=== PATIENT | male | born 1955 | race Caucasian/White ===

== ENCOUNTER → 2017-02-11 | Outpatient (CLI) | payer BC ==
[~2017-02-11] MED LIST: GADAVIST IV PRN
--- NOTE | 2017-02-11 08:04 | DIAGNOSTIC IMAGING REPORT ---
MRI NECK HISTORY: Left-sided neck pain and numbness. TECHNIQUE: Multiplanar multisequence MRI of the neck was performed both before and after the intravenous administration of contrast. COMPARISON STUDY: None. FINDINGS: Visualized brain parenchyma is unremarkable. Small retention cysts within the floor of the right maxillary sinus. The mastoid air cells are clear. Skin marker overlying the left hemimandible. No soft tissue abnormality along the left side of the jaw. Submandibular and parotid glands enhance normally. The major mucosal airway surfaces are intact. No significant cervical lymphadenopathy. Normal marrow signal intensity seen throughout the visualized osseous structures. No abnormal enhancement. Motion artifact within the lower neck. Thyroid appears to be grossly unremarkable. Prevertebral soft tissues and the epiglottis are normal in thickness. The major cervical vessels are normal in caliber. IMPRESSION: No significant abnormality identified within the neck. Electronically signed by: Kory Burton M.D. 02/11/2017 8:03 AM Dictated Date/Time: 02/11/2017 7:57 AM
== END | disposition home or self-care (01) ==
LOC: C.MRI 05:57
PROVIDERS: ATTEND Internal Medicine Hematology & Oncology
DX: M50.11 Cervical disc disorder with radiculopathy, high cervical region (principal)

== ENCOUNTER 2020-09-30 10:54 | Observation (INO) ==
--- NOTE | 2020-09-04 14:09 | PAT Medication Instructions ---
Medication Instructions Date of Service September 04, 2020 Home Medications aspirin [Aspir-81] 81 mg PO QPM glucosamine-chondroitin [Osteo Bi-Flex] 1 tab PO BID hydrochlorothiazide 50 mg PO QAM ibuprofen [Advil] 400 - 600 mg PO Q6H PRN omega 7-qep-utr-fish oil [[place] 3 Fish Oil] 1 cap PO QAM potassium chloride [Klor-Con] 20 meq PO BID simvastatin 40 mg PO PM ASK your surgeon for instructions ibuprofen [Advil] 400 - 600 mg PO Q6H PRN STOP taking 2 weeks before surgery (or as soon as possible if surgery is within 2 weeks) glucosamine-chondroitin [Osteo Bi-Flex] 1 tab PO BID omega 4-jkr-ypb-fish oil [[place] 3 Fish Oil] 1 cap PO QAM DO NOT take the morning of surgery hydrochlorothiazide 50 mg PO QAM potassium chloride [Klor-Con] 20 meq PO BID Take evening before surgery aspirin [Aspir-81] 81 mg PO QPM (continue as normal unless told otherwise by surgeon) potassium chloride [Klor-Con] 20 meq PO BID simvastatin 40 mg PO PM Other Notes If you have any questions please call us at [phone] or [phone] or [phone] or [phone]
--- NOTE | 2020-09-08 16:17 | Anesthesiology Consultation ---
Date of Service September 08, 2020 Assessment & Plan (1) Encounter for pre-operative examination: COVID Status: As of 09/08 assessment, patient denies travel to endemic area, known exposure/sick contacts, or symptoms of COVID19. Patient advised to adhere to social distancing guidelines, wear a mask in public and avoid large crowds or unnecessary travel in the 2 weeks leading up to surgery. Preoperative COVID19 testing to be completed prior to surgery per surgeon's arrangements (09/26 per pt). Patient encouraged to be extra cautious/conscientious with COVID precautions between COVID testing and surgery. Pt is fully vaccinated with Moderna vaccine. Chart Review Chart Review: Acceptable Risk for Surgery (pending pcp clearance) and Patient seen in Pre Admission Testing Teaching & Discussion Instructed NPO after midnight before surgery, except medications with 15 cc of water. Medication instructions provided according to the PAT guidelines. History Surgery Operation Date: 09/30/20 10:20 Proposed Procedures p Right Total Knee Arthroplasty(Right) - Rodolfo Doyle Nichole MD Height/Weight Height: 5 ft 8 in Weight: 105.3 kg Allergies Allergy/AdvReac Type Severity Reaction Status Date / Time scallops Allergy Unknown NAUSEA Verified 09/02/20 08:49 VOMITING Medications Home Medications Medication Instructions Recorded Confirmed Last Taken aspirin [Aspir-81] 81 mg PO QPM 09/02/20 09/02/20 Unknown glucosamine-chondroitin [Osteo 1 tab PO BID 09/02/20 09/02/20 Unknown Bi-Flex] hydrochlorothiazide 50 mg PO QAM 09/02/20 09/02/20 Unknown ibuprofen [Advil] 400 - 600 mg PO Q6H PRN 09/02/20 09/02/20 Unknown omega 3-iej-fsh-fish oil [[place] 3 1 cap PO QAM 09/02/20 09/02/20 Unknown Fish Oil] potassium chloride [Klor-Con] 20 meq PO BID 09/02/20 09/02/20 Unknown simvastatin 40 mg PO PM 09/02/20 09/02/20 Unknown Past Medical History Medical History Cancer BASAL CELL REMOVED FROM FACE Hyperlipidemia Hypertension Obesity Osteoarthritis Exercise / Class Metabolic Activity II 4-5 Yardwork/Stairs/Walk up hill Past Family History Family History Other No known health problems Past Surgical History Surgical History History of colonoscopy History of nasal septoplasty Past Anesthesia History No Hx of Anesthesia Complications and No Family Hx of Anesthesia Complications History of PONV No Hx of PONV and No Hx of Motion Sickness Social History Smoking Status: Former smoker Do You Dip or Chew Tobacco: No Smoking End Date: QUIT 30 YRS AGO Hx Alcohol Use: Yes Alcohol type: beer, wine and hard liquor alcohol intake frequency: a few times a week Hx Substance Use: No Review of Systems Pt denies any recent chest pain, shortness of breath, palpitations, cough, fever, URI, or uncontrolled acid reflux. +joint pain Physical Exam Vital Signs BP: 141/99 P: 80bpm SPO2: 97% RA T: 97.8 F R: 16 ENMT Mouth: + dental restorations (one crown lower molar) and + chipped teeth (one lower R cuspid chipped); no loose teeth Thyromental Distance: > or= 3.5 Finger Breadths Mallampati Class: II Neck + thick neck; neck extension not limited Respiratory normal respiratory effort, lungs clear to auscultation Cardiovascular RRR, no murmur, no edema Testing Laboratory Results 09/08/20 16:33 09/08/20 16:33 PT 10.0 Seconds (9.0-12.0) 09/08/20 16:33 INR 1.0 (0.9-1.1) 09/08/20 16:33 APTT 23.7 Seconds (21.0-31.0) 09/08/20 16:33 Blood Type O Positive 09/08/20 16:33 Antibody Screen NEGATIVE 09/08/20 16:33 Electrocardiogram Date: 09/08/20 Findings: + NSR @ (64bpm)
[2020-09-08 17:04] LABS: Basophils # (auto) 0.02 K/uL (0-0.2); Basophils % (auto) 0.4 %; Eosinophils % (auto) 3.8 %; Hematocrit (blood only) 47.2 % (42-52); Hemoglobin 16.3 g/dL (14.0-18.0); Immature Granulocytes # (auto) 0.01 K/uL (0.00-0.02); Immature Granulocytes % (auto) 0.2 %; Lymphocytes # (auto) 1.65 K/uL (1.2-3.4); Mean Corpuscular Hemoglobin 31.3 pg (25-34); Mean Corpuscular Hgb Conc 34.5 g/dL (32-36); Mean Corpuscular Volume 90.8 fL (80-100); Mean Platelet Volume 10.8 fL (7.4-10.4); Monocytes # (auto) 0.48 K/uL (0.11-0.59); Neutrophils # (auto) 2.96 K/uL (1.4-6.5); Neutrophils % (auto) 55.6 %; Platelet Count 172 K/uL (130-400); RDW Coefficient of Variation 13.3 % (11.5-14.5); RDW Standard Deviation 43.7 fL (36.4-46.3); White Blood Count 5.32 K/uL (4.8-10.8)
[2020-09-08 17:18] LABS: Partial Thromboplastin Ratio 0.9; Partial Thromboplastin Time 23.7 Seconds (21.0-31.0)
[2020-09-08 18:10] LABS: Albumin Level 4.1 gm/dl (3.4-5.0); BUN Creatinine Ratio 20.5 (10-20); Bilirubin Direct 0.2 mg/dl (0-0.2); Bilirubin,Total 1.1 mg/dl (0.2-1); Calcium 9.4 mg/dl (8.5-10.1); Creatinine Clr Calc Pharmacy 80.9 ml/min; Est GFR (African American) 82.4 ml/min; Est GFR (Non-African American) 71.1 ml/min; Potassium 3.7 mmol/L (3.5-5.1); Total Protein 7.7 gm/dl (6.4-8.2)
--- NOTE | 2020-09-09 13:12 | Electrocardiogram Report ---
Test Reason : Blood Pressure : / mmHG Vent. Rate : 064 BPM Atrial Rate : 064 BPM P-R Int : 176 ms QRS Dur : 092 ms QT Int : 400 ms P-R-T Axes : 058 045 050 degrees QTc Int : 412 ms Normal sinus rhythm Normal ECG No previous ECGs available Confirmed by Luan Hamm ([id number]) on 09/09/2020 1:11:39 PM Referred By: Rodolfo Nichole Confirmed By:Luan Hamm
[~2020-09-30 10:54] MED LIST changes: +BUPIVACAINE 0.25% 30 ML VIAL ONE; +BUPIVACAINE 0.5 % 5 MG/1 ML PF 10ML VIAL ONE; +CeleBREX 200 MG CAP PO SCH; +EPINEPHrine INJ 1 MG/ML AMP ONE; -GADAVIST IV PRN; +LR 500ML BOLUS, THEN 15ML/HR IV SCH; +LR 60ML/HR IV SCH; +ROPIVACAINE 0.5% HCL/PF 150 MG, BUPIVACAINE 0.75% MPF 20 ML, EPINEPHrine 0.15 MG, Ketor... INFIL SCH; +Scopolamine 1 MG TDSY TD SCH; +TRANEXAMIC ACID 1,000 MG **IV Intra-op IV SCH; +TRANEXAMIC ACID 1,000 MG **IV Pre-op IV SCH; +ceFAZolin 2000MG 2,000 MG/15 ML SYR IV SCH
[2020-09-30] MEDS ORDERED: LIDOCAINE 2% 2 ML VIAL/AMP(20MG/ML) INFIL ONE (12:52)
[2020-09-30] MEDS ORDERED: MIDAZOLAM HCL 1 MG/ML 2ML VIAL ONE ×2 (12:52→15:12)
[2020-09-30] MEDS ORDERED: ONDANSETRON INJ 2 MG/ML 2 ML VIAL ONE (12:53)
[2020-09-30] MEDS ORDERED: PROPOFOL IV EMULSION 10 MG/ML 20 ML VIAL IV ONE ×5 (12:53→17:24)
[2020-09-30] MEDS ORDERED: fentaNYL citrate 100 MCG/2 ML VIAL IV PRN (13:02)
[2020-09-30] MEDS ORDERED: ePHEDrine sulfate 50 MG/ML AMP IV PRN (13:02)
[2020-09-30] MEDS ORDERED: HYDROmorphone INJ 2 MG/ML SYR/VIAL IV PRN (13:02)
[2020-09-30] MEDS ORDERED: ONDANSETRON INJ 2 MG/ML 2 ML VIAL IV PRN ×2 (13:02→17:38)
[2020-09-30] MEDS ORDERED: ATROPINE SULFATE 0.1 MG/ML 10ML SYR IV PRN (13:02)
--- NOTE | 2020-09-30 13:36 | History & Physical Bridge Note ---
Date of Service September 30, 2020 History & Physical Bridge Note I have examined the patient, reviewed the History & Physical and in the interval since the performance of the History & Physical I have noted the following changes of clinical significance: no changes noted Patient is aware of the risks, is asymptomatic, and tested negative for COVID- 19.
[2020-09-30] MEDS ORDERED: ORTHO JOINT ANESTHETIC ONE (13:47)
[2020-09-30] MEDS ORDERED: ePHEDrine sulfate 50 MG/ML AMP ONE (14:43)
[2020-09-30] MEDS ORDERED: SODIUM CHLORIDE 0.9% INJ 10 ML VIAL ONE (14:44)
[2020-09-30] MEDS ORDERED: PHENYLEPHRINE 100MCG/ML 5ML SYR ONE (14:47)
[2020-09-30] MEDS ORDERED: KETAMINE 50 MG/5 ML SYRINGE ONE (16:16)
--- NOTE | 2020-09-30 17:22 | Post Operative Brief Note ---
Immediate Post Op Note v1 Date of Surgery September 30, 2020 Pre & Post Diagnosis Operation Date: 09/30/20 13:10 Pre-Op Diagnosis: Right Knee Osteoarthritis Post-Op Diagnosis: Right Knee Osteoarthritis I identified the patient and participated in the time-out.: Yes Procedure Operation Date: 09/30/20 13:10 Actual Procedures p Right Total Knee Arthroplasty(Right) - Rodolfo Nichole MD Surgeon Rodolfo Nichole MD Proof Tester Cathy Faye PA-C (No fellow avail) Estimated Blood Loss 120 Findings See Below Fluids 1700 cc Specimens Right knee contents Anesthesia Type MAC Spinal Regional Complications none
--- NOTE | 2020-09-30 17:23 | Operative Report ---
Post Operative Report Pre & Post Diagnosis Operation Date: 09/30/20 13:10 Pre-Op Diagnosis: Right Knee Osteoarthritis Post-Op Diagnosis: Right Knee Osteoarthritis I identified the patient and participated in the time-out.: Yes Procedure Operation Date: 09/30/20 13:10 Actual Procedures p Right Total Knee Arthroplasty(Right) - Rodolfo Nichole MD Surgeon Rodolfo Nichole MD Band Tacker Cathy Faye PA-C (No fellow avail) Estimated Blood Loss 120 Findings See Below Examined Under Anesthesia: ROM -- 10 to 125 degrees of flexion Ligamentous examination -- revealed stable Andreea, posterior drawer, varus stress at 10 and 30 degrees. Pseudo laxity of 1 mm with valgus stress at 10 and 30 degrees. [place] Type IV changes of Medial compartment, bone on bone; Type III changes Lateral and Patellofemoral compartments. Marginal osteophytes all 3 compartments. Fluids 1700 cc Specimens Right knee contents Anesthesia Type MAC Spinal Regional Complications none Indications This is a 65-year-old male who has clinical and radiographic findings consistent with osteoarthritis of the a right knee. I recommended that a right total knee replacement be performed. The patient understands the risks of surgery, which include but not limited to: bleeding, infection, re-operation, damage to nerves and arteries, continued knee pain, knee stiffness, DVT, and . The patient understands all of these instructions and explanations, all of his questions have been satisfactorily addressed and the patient has elected to proceed. Informed consent was signed. Description of Procedure IMPLANTS: 1. Femur: Triathlon #5 Right PS. 2. Tibia: Triathlon #6 [place]. 3. Insert: Triathlon #6 x 11 mm PS X3 poly. 4. Patella: Triathlon A35 x 10 mm X3 poly. 5. Simplex cement. Cathy Faye PA-C is assisting with positioning, retracting, and closure due to fellow not available. PROCEDURE: The patient was taken to the Operating Room and placed in the supine position after spinal and adductor canal nerve block was administered. My initials and a multidisciplinary time-out were used to identify the right leg as the correct operative limb. A tourniquet was placed high in the thigh. Prior to the incision, 2 grams of intravenous Ancef were given. The [right] leg was then prepped and draped in a standard sterile fashion. An Esmarch was used to exsanguinate the leg and the tourniquet was inflated to 250 mmHg. The planned mid-line 20 cm incision was created exposing the extensor mechanism. The medial parapatellar arthrotomy was made and the patella was everted. The patella was addressed first. It was prepared by reaming from [27] mm down to [15] mm. An [A38] button was found to fit best. The peg holes were made in the standard fashion. The femur was addressed next and the guide madie was placed intramedullary. The initial cutting block was placed with [5] degrees of valgus and removing [10] mm for the distal cut. The cut was made and the 4-in-1 cutting block for a size [6] femur was placed. These cuts and the cuts to place the box were made in the standard fashion. Our attention was then drawn to the tibia cut with the external cutting guide, taking [4] mm from the medial low side. There was sufficient extension and flexion gap to fit a [9] mm spacer. A #[6] Tibial baseplate fit well. A trial with a [9] mm spacer showed excellent stability in both flexion and extension, with good ligament balance, and thumbs free patellar tracking. Range of motion of [0-120] degrees. The tibial baseplate was prepped for the keel and stem. [A stem was used due to some areas of soft bone, to avoid subsidence.] All the trial components were tested again, with good stability and thumbs free tracking of the patella. All components were removed. The tourniquet was deflated. Hemostasis was obtained. 90 ml of total knee cocktail were injected into the soft tissues and periosteum. A bone plug was placed in the femur and covered with bone wax. After a 15 minute break, the limb was exsanguinated again and the tourniquet was re-inflated. All surfaces were copiously irrigated prior to placement of the components. The femoral component followed by Tibial baseplate were cemented in place and [a X mm trial placed][ and the 9 mm X3 poly was placed]. Next, the patellar button was placed using the same Simplex cement. [Again with the [9] mm trial poly was placed and the range of motion and stability were unchanged. Once the cement had cured, the [9] mm X3 poly was placed. ] The extensor mechanism was closed with 1-0 and 0 Vicryl with the knee bent approximately 60 degrees in a standard fashion. The peritenon and deep fascia was closed with 2-0 Vicryl. The subcutaneous layer was closed with 3-0 Vicryl. The skin was closed with Zipline and shield. The limb was cleaned and dried. 4x4 dressing was placed over top followed by ABDs, sterile Webril, and a foot to thigh Miguelito bandage. The patient was then transferred to the Recovery Room in stable condition. The sponge and needle counts were correct. POST-OP INSTRUCTIONS: The patient will be WBAT. The patient will be admitted to the hospital. The patient will use the knee immobilizer when ambulating and standing until good quad control is achieved. Labs will be obtained during the stay. DVT prophylaxis will included aspirin for 6 weeks, TEDs, and mechanical foot pumps. The dressing will be changed prior to their discharge or postop day #2 and covered with a Silverlon dressing, whichever comes first. I attest to the content of the Intraoperative Record and any orders documented therein. Any exceptions are noted below.
[2020-09-30] MEDS ORDERED: bisacodyL 10 MG SUPP PR PRN (17:38)
[2020-09-30] MEDS ORDERED: oxyCODONE HCL IR 5 MG TAB (IMMEDIATE RELEASE) PO PRN (17:38)
[2020-09-30] MEDS ORDERED: diphenhydrAMINE 50 MG/ML VIAL IV PRN (17:38)
[2020-09-30] MEDS ORDERED: HYDROmorphone INJ 1 MG/ML SYRINGE IV PRN (17:38)
[2020-09-30] MEDS ORDERED: diphenhydrAMINE Capsule 25 MG CAP PO PRN (17:38)
[2020-09-30] MEDS ORDERED: MAGNESIUM HYDROXIDE SUSP 30 ML UDC PO PRN (17:38)
[2020-09-30] MEDS ORDERED: NALOXONE HCL 0.4 MG/1 ML VIAL/CARP IV PRN (17:38)
[2020-09-30] MEDS ORDERED: ALUMINUM/MAGNESIUM SUSP 30 ML UDC PO PRN (17:38)
[2020-09-30] MEDS ORDERED: METOCLOPRAMIDE HCL INJ 5 MG/ML 2 ML VIAL IV PRN (17:38)
--- NOTE | 2020-09-30 17:40 | Operative Report ---
Post Operative Report Pre & Post Diagnosis Operation Date: 09/30/20 13:10 Pre-Op Diagnosis: Right Knee Osteoarthritis Post-Op Diagnosis: Right Knee Osteoarthritis I identified the patient and participated in the time-out.: Yes Procedure Operation Date: 09/30/20 13:10 Actual Procedures p Right Total Knee Arthroplasty(Right) - Rodolfo Nichole MD Surgeon Rodolfo Nichole MD Grab Operator Cathy Faye PA-C (No fellow avail) Estimated Blood Loss 120 Findings Consistent with Post-Op Diagnosis Specimens bone Complications none Description of Procedure See Dr Nichole note. I was interior design assistant during entire case to include prepping, draping, limb and instrument handling, wound closure, dressings. I attest to the content of the Intraoperative Record and any orders documented therein. Any exceptions are noted below.
--- NOTE | 2020-09-30 18:03 | XRay Report ---
XR knee RT 1 or 2V routine CLINICAL HISTORY: Surgical Post Op COMPARISON: Right knee radiographs August 04, 2020. FINDINGS: Alignment of the total right knee arthroplasty is anatomic. There is no periprosthetic fra cture or unexpected radiopaque foreign body. IMPRESSION: Expected findings following total right knee arthroplasty ACT 112: Negative or not required by law. Electronically signed by: Robert Proctor M.D. 09/30/2020 6:02 PM
--- NOTE | 2020-09-30 18:12 | Anesthesiology Progress Note ---
Date of Service September 30, 2020 Anesthesia Post Procedure Vital Signs Vital Signs: Temp Pulse Pulse Resp BP BP Pulse Ox 09/30/20 18:10 36.1 C L 93 H 18 123/75 95 09/30/20 18:00 92 H 17 111/78 96 09/30/20 17:50 97 H 16 143/98 H 96 09/30/20 17:40 98 H 20 116/83 99 09/30/20 17:34 36.2 C L 102 H 15 120/82 94 09/30/20 13:30 37.0 C 70 18 169/94 H 95 09/30/20 11:34 36.7 C 72 20 151/98 H 95 Pain Intensity Right Knee: Pain Intensity: 4 Transfer of Care Handoff Completed per policy Notes Mental Status: alert / awake / arousable and participated in evaluation Nausea / Vomiting: adequately controlled Pain: adequately controlled Airway Patency, RR, SpO2: stable & adequate BP & HR: stable & adequate Hydration State: stable & adequate Neuraxial Anesthesia: was administered and sensory block is resolving Anesthetic Complications: no major complications apparent and Pt Satisfied with anesthetic care
[2020-09-30] MEDS: Scopolamine CHECK PATCH PLACEMENT SCH (19:04)
[2020-09-30] MEDS: SODIUM CHLORIDE 0.9% 1000ML 1,000 ML IV SCH (19:10)
[2020-09-30] MEDS ORDERED: SIMVASTATIN 40 MG TAB PO SCH (21:00)
[2020-09-30] MEDS ORDERED: SENNA 8.6 MG TAB PO SCH (21:00)
[2020-09-30] MEDS: ceFAZolin 2000MG 2,000 MG/15 ML SYR IV SCH (22:07)
[2020-09-30] MEDS: ACETAMINOPHEN 500 MG TAB PO SCH (22:07)
[2020-09-30] MEDS: POTASSIUM CHLORIDE CRTAB 20 MEQ TABCR PO SCH (22:08)
[2020-09-30] MEDS: ASPIRIN 81 MG ECTAB PO SCH (22:09)
[2020-09-30] MEDS: DOCUSATE SODIUM 100 MG CAP PO SCH (22:09)
[2020-10-01] MEDS: Scopolamine CHECK PATCH PLACEMENT SCH ×2 (00:49→07:54)
[2020-10-01] MEDS: ACETAMINOPHEN 500 MG TAB PO SCH ×2 (05:08→10:53)
[2020-10-01] MEDS: SODIUM CHLORIDE 0.9% 1000ML 1,000 ML IV SCH (05:09)
[2020-10-01] MEDS: ceFAZolin 2000MG 2,000 MG/15 ML SYR IV SCH (05:12)
[2020-10-01 07:04] LABS: Hematocrit (blood only) 36.7 % (42-52); Hemoglobin 12.4 g/dL (14.0-18.0); Mean Corpuscular Hemoglobin 31.1 pg (25-34); Mean Corpuscular Hgb Conc 33.8 g/dL (32-36); Mean Platelet Volume 10.5 fL (7.4-10.4); Platelet Count 128 K/uL (130-400); RDW Coefficient of Variation 13.1 % (11.5-14.5); RDW Standard Deviation 44.3 fL (36.4-46.3); Red Blood Count 3.99 M/uL (4.7-6.1); White Blood Count 7.09 K/uL (4.8-10.8)
[2020-10-01 07:32] LABS: BUN Creatinine Ratio 15.8 (10-20); Calcium 8.1 mg/dl (8.5-10.1); Creatinine Clr Calc Pharmacy 67.9 ml/min; Est GFR (African American) 68.7 ml/min; Est GFR (Non-African American) 59.3 ml/min
[2020-10-01] MEDS: ASPIRIN 81 MG ECTAB PO SCH (07:53)
[2020-10-01] MEDS: POTASSIUM CHLORIDE CRTAB 20 MEQ TABCR PO SCH (07:54)
[2020-10-01] MEDS: DOCUSATE SODIUM 100 MG CAP PO SCH (07:54)
[2020-10-01] MEDS ORDERED: ASCORBIC ACID 500 MG TAB PO SCH (08:00)
[2020-10-01] MEDS ORDERED: FERROUS GLUCONATE 324 MG TAB PO SCH (08:00)
[2020-10-01] MEDS ORDERED: MULTIVITAMIN TAB PO SCH (09:00)
[2020-10-01] MEDS ORDERED: hydroCHLOROthiazide 25 MG TAB PO SCH (09:00)
--- NOTE | 2020-10-01 09:34 | Orthopedic Progress Note ---
Date of Service October 01, 2020 Assessment & Plan (1) Osteoarthritis of right knee: POD #1 s/p right TKA, doing as well as expected. Resume diet. WBAT with walker; immobilizer with ambulation until demonstrates good quad control no more than first 48 hours. May trial ambulation without immobilizer. OOB to chair. Continue pain control. Change dressing to Silverlon POD #2 or prior to discharge, whichever comes first. DVT prophylaxis: TEDs 3 weeks, foot pumps while in hospital, ASA 81 mg BID for 6 weeks. PT/OT. D/C planning. Present on Admission?: Yes Admission and Anticipated Discharge Date Admission Date: September 30, 2020 Subjective Doing alright. Starting to pain a bit. Physical Exam Physical Exam: RLE: Dressing is Clean, dry, intact. Neurovascularly intact.Calf is soft and non-tender. Able to preform straight leg raise, 10 degrees extensor lag. ROM 0-80 degrees. Results & Data ([facility]) Vital Signs (Past 12 Hours) Vital Signs Temp Pulse Resp BP Pulse Ox 10/01/20 07:51 36.8 C 84 16 123/76 96 10/01/20 03:17 36.6 C 83 19 125/75 99 09/30/20 23:31 36.7 C 70 17 121/72 94 09/30/20 22:03 36.4 C L 80 15 128/80 95 Laboratory Results 10/01/20 10/01/20 09/30/20 Range/Units 06:45 06:45 11:22 WBC 7.09 (4.8-10.8) K/uL RBC 3.99 L (4.7-6.1) M/uL Hgb 12.4 L (14.0-18.0) g/dL Hct 36.7 L (42-52) % MCV 92.0 (80-100) fL MCH 31.1 (25-34) pg MCHC 33.8 (32-36) g/dL RDW Std Deviation 44.3 (36.4-46.3) fL RDW Coeff of Sindy 13.1 (11.5-14.5) % Plt Count 128 L (130-400) K/uL MPV 10.5 H (7.4-10.4) fL Sodium 139 (136-145) mmol/L Potassium 4.0 (3.5-5.1) mmol/L Chloride 104 (98-107) mmol/L Carbon Dioxide 25 (21-32) mmol/L Anion Gap 10.0 (3-11) BUN 20 H (7-18) mg/dl Creatinine 1.27 (0.6-1.4) mg/dl Est Cr Clr Drug Dosing 67.9 ml/min Est GFR ( Amer) 68.7 ml/min Est GFR (Non-Af Amer) 59.3 ml/min BUN/Creatinine Ratio 15.8 (10-20) Glucose 132 H (70-99) mg/dl Calcium 8.1 L (8.5-10.1) mg/dl COVID-19 Eval Order SARS-CoV-2, RNA, NAAT NEGATIVE (NEGATIVE) 09/30/20 Range/Units 11:22 WBC (4.8-10.8) K/uL RBC (4.7-6.1) M/uL Hgb (14.0-18.0) g/dL Hct (42-52) % MCV (80-100) fL MCH (25-34) pg MCHC (32-36) g/dL RDW Std Deviation (36.4-46.3) fL RDW Coeff of Sindy (11.5-14.5) % Plt Count (130-400) K/uL MPV (7.4-10.4) fL Sodium (136-145) mmol/L Potassium (3.5-5.1) mmol/L Chloride (98-107) mmol/L Carbon Dioxide (21-32) mmol/L Anion Gap (3-11) BUN (7-18) mg/dl Creatinine (0.6-1.4) mg/dl Est Cr Clr Drug Dosing ml/min Est GFR ( Amer) ml/min Est GFR (Non-Af Amer) ml/min BUN/Creatinine Ratio (10-20) Glucose (70-99) mg/dl Calcium (8.5-10.1) mg/dl COVID-19 Eval Order Covid19 [facility] SARS-CoV-2, RNA, NAAT (NEGATIVE) Diagnostic Findings I reviewed the AP & Lateral right knee showed evidence of cemented right TKA.
--- NOTE | 2020-10-01 13:11 | Orthopedic Progress Note ---
Date of Service October 01, 2020 Assessment & Plan (1) Osteoarthritis of right knee: POD #1 s/p right TKA, doing as well as expected. Continue diet. WBAT with walker; immobilizer with ambulation until demonstrates good quad control no more than first 48 hours. May trial ambulation without immobilizer. OOB to chair. Continue pain control. Dressing changed to silverlon waterproof dressing to remain on until f/u in office. DVT prophylaxis: TEDs 3 weeks, foot pumps while in hospital, ASA 81 mg BID for 6 weeks. PT/OT. D/C planning---plan to go home today. DC order placed. Admission and Anticipated Discharge Date Admission Date: September 30, 2020 Subjective Patient seen this PM. Ready to go home. Had lunch and physical therapy. No issues. Physical Exam Physical Exam: Post-op dressings removed to right knee. Zip line intact. Some dry blood on 4x4s. Otherwise no active drainage. NV intact B LE. B calves are soft. Results & Data ([facility]) Vital Signs (Past 12 Hours) Vital Signs Temp Pulse Resp BP Pulse Ox 10/01/20 12:25 36.9 C 76 17 122/75 98 10/01/20 07:51 36.8 C 84 16 123/76 96 10/01/20 03:17 36.6 C 83 19 125/75 99 Laboratory Results 10/01/20 10/01/20 Range/Units 06:45 06:45 WBC 7.09 (4.8-10.8) K/uL RBC 3.99 L (4.7-6.1) M/uL Hgb 12.4 L (14.0-18.0) g/dL Hct 36.7 L (42-52) % MCV 92.0 (80-100) fL MCH 31.1 (25-34) pg MCHC 33.8 (32-36) g/dL RDW Std Deviation 44.3 (36.4-46.3) fL RDW Coeff of Sindy 13.1 (11.5-14.5) % Plt Count 128 L (130-400) K/uL MPV 10.5 H (7.4-10.4) fL Sodium 139 (136-145) mmol/L Potassium 4.0 (3.5-5.1) mmol/L Chloride 104 (98-107) mmol/L Carbon Dioxide 25 (21-32) mmol/L Anion Gap 10.0 (3-11) BUN 20 H (7-18) mg/dl Creatinine 1.27 (0.6-1.4) mg/dl Est Cr Clr Drug Dosing 67.9 ml/min Est GFR ( Amer) 68.7 ml/min Est GFR (Non-Af Amer) 59.3 ml/min BUN/Creatinine Ratio 15.8 (10-20) Glucose 132 H (70-99) mg/dl Calcium 8.1 L (8.5-10.1) mg/dl
--- NOTE | 2020-10-01 15:04 | Discharge Summary ---
Date of Service October 01, 2020 Principal Diagnosis Right knee osteoarthritis Discharge Data Allergies Allergy/AdvReac Type Severity Reaction Status Date / Time scallops Allergy Unknown NAUSEA Verified 09/30/20 11:37 VOMITING Procedures Performed Operation Date: 09/30/20 13:10 Actual Procedures p Right Total Knee Arthroplasty(Right) - Rodolfo Doyle Nichole MD Ordered Studies 09/30/20 05:00 US - OR guided needle placemen Routine Hospital Course (1) Osteoarthritis of right knee: Patient underwent right total knee arthroplasty performed by Dr Nichole on 09-30-20. Surgery was without complication. He was admitted to the floor under observation. 24 hours of postop antibiotics. His pain was controlled with p.o. narcotics. He received physical therapy on postop day 1. He was able to ambulate with a walker. He is using a knee immobilizer only with ambulation. He tolerated a regular diet. Vital signs and postop day 1 AM labs within normal limits. DVT prophylaxis while in the hospital consisted of foot pumps, MELANIE hose, and 81mg ASA BID. He was seen by case management and home health physical therapy ordered. He has had no issues with his knee wound. Post-op dressings were changed to silverlon waterproof dressing on POD 1. Patient was deemed stable to be discharged to home on POD 1 in pm. He will start home health therapy. WBAT with walker. Knee immobilizer for 48hrs post-op or until good quad control. He will use his ez wrap ice gel pack, tylenol, and oxycodone for pain. He will keep waterproof dressing on until follow-up in 2wks. DVT prophylaxis will consist of ASA 81mg BID x 6wks, knee high TEDs for 2-3wks. Discharge medications sent to his pharmacy consisting of ASA, tylenol, oxycodone, iron, and vit c. Claude see Discharge Instructions for further details. He will follow-up in the office as scheduled at his 2 week post-op and will call the office or go the the emergency room with any questions or concerns. Total Time Total Time Spent Total Time Spent (In Minutes): 20 minutes Discharge Plan Discharge Items Patient Disposition: Home - Home Health Services Reason For Visit: Right Knee OA Discharge Diagnosis: Right Knee OA Activity: Per Instructions section Non-emergency contact: Surgeon Call non-emergency contact if: your temperature is above 101.5, your wound has increased redness and your wound has increased drainage Follow-up/Referrals: Mo Cordon M.D. [Primary Care Provider] - Nunu Faye P.A.-C. [Physician Clinical Counselor] - 10/14/20 8:30 am Diet: Regular Addtl Attending Provider Instructions: Post-operative Instructions Pain Expect to be in a fair amount of pain after surgery. Remember, our goal is not to eliminate your pain, but to make it tolerable. It is a good idea to stay ahead of your pain by taking the medications you were prescribed once you get home. Typically, the pain starts improving 3-7 days after surgery. You should start weaning off the narcotic pain medication (oxycodone) as soon as your pain improves. Please call our office if your pain is not adequately controlled. You can take tylenol 1000mg every 8hrs for mild to moderate pain. Ice Ice your operative site at least 5 times a day for 15-30 minutes at a time. Make sure you have a thin cloth between the ice or cooling unit and your skin to prevent woods bite. This is especially important if you received a nerve block. Continue icing your operative site for the first 5-7 days after surgery, then as needed. Diet/Nausea/Vomiting Start by drinking clear liquids and eating crackers. If you can tolerate this, then you may resume your normal diet. If you feel nauseated or vomit, take Zofran/ondansetron (if prescribed). Please call our office if you have intractable nausea or vomiting, or, if after hours, you may go to the Emergency Room for help. Constipation Constipation is a common side effect of narcotic pain medication. If you have not had a bowel movement within 2 days after surgery, we recommend purchasing an over the counter laxative such as Milk of Magnesia, Dulcolax, or Miralax from a local pharmacy, and taking it as instructed. Call our clinic if any questions. Weight bearing and Range of Motion. Weightbearing as tolerated with walker. No restrictions with range of motion. *KNEE IMMOBILIZER x 48hrs AFTER SURGERY WHILE AMBULATING AND THEN CAN STOP (CONTINUE IF YOU DO NOT HAVE GOOD QUAD CONTROL)* Physical therapy Initially you will start with home health physical therapy. At our first visit with at our office we will provide you with script for outpatient physical therapy. Wound care and showering We will inspect your wound at your first post-operative visit, and may do a dressing change at that time. Most patients will be in a water-proof dressing that is removed 14 days after surgery. It is normal to see some dried blood on the dressing. Do not remove your dressing, paper strips or sutures yourself unless you are given permission. Showering is allowed the day after surgery. Do not scrub or remove any dressings. The wound should not be submerged underwater (i.e. in a bathtub or pool) until 4 weeks after surgery MELANIE stockings If you were given white stockings, these are to be worn at all times except to shower and sleep (on both legs) for the first 2 weeks after surgery. We will discuss removal at your first follow-up appointment. Driving You may not drive while taking narcotic pain medication. We will discuss return to driving at your first follow-up appointment. Return To Work Your return to work depends on what surgery was done and what type of work you do. Please bring any paperwork your employer needs completed to your first post-operative visit. Also, bring a description of your job duties, as this helps us to understand what risks you may face at work. Travel Avoid long distance travel (greater than 1 hour) in airplanes and cars for the first 6 weeks after surgery if possible. If you must travel, please let us know so we can discuss additional measures to prevent blood clots. Follow-up You should have a follow-up appointment already scheduled for 2 weeks after surgery. If not, please contact our office to make this appointment before you leave the hospital. When to call the office [phone] It is normal to have swelling and bruising in the limb that was operated on. This will improve with time. It is also normal to have fevers for the first 2 days after surgery. Reasons you should call your doctor include: Uncontrolled pain; Nausea, vomiting, or constipation that does not improve with medication; Fevers over 101.5, chills, sweats; Drainage or bleeding from the wound; Foul odor; Spreading areas of redness; Any other concerns. NEW MEDICATIONS: new medications will be sent to your pharmacy: oxycodone, iron, vit c, tylenol, aspirin. Pending Studies at Discharge: No Stand-Alone Forms: My [facility], Smoking Cessation Medications and DC Order Prescriptions: New acetaminophen 500 mg Tablet 1,000 mg PO Q8 PRN (Reason: pain) Qty: 60 RF: 0 ferrous gluconate 324 mg (38 mg iron) Tablet 324 mg PO BIDM 14 Days Qty: 28 RF: 0 aspirin 81 mg Tablet,Delayed Release (Dr/Ec) 81 mg PO BID 42 Days Qty: 84 RF: 0 ascorbic acid (vitamin C) [Vitamin C] 500 mg Tablet 500 mg PO BIDM 14 Days Qty: 28 RF: 0 oxycodone 5 mg Tablet 5 - 10 mg PO Q4H PRN (Reason: pain) Qty: 30 RF: 0 Continued hydrochlorothiazide 50 mg Tablet 50 mg PO QAM RF: 0 simvastatin 40 mg Tablet 40 mg PO PM RF: 0 potassium chloride [Klor-Con] 20 mEq Packet 20 meq PO BID RF: 0 Discontinued aspirin [Aspir-81] 81 mg Tablet,Delayed Release (Dr/Ec) 81 mg PO QPM RF: 0 ibuprofen [Advil] 200 mg Tablet 400 - 600 mg PO Q6H PRN (Reason: Pain) RF: 0 glucosamine-chondroitin [Osteo Bi-Flex] 250-200 mg Tablet 1 tab PO BID RF: 0 Andes 3 Fish Oil 900-1,400 mg Capsule,Delayed Release(Dr/Ec) 1 cap PO QAM RF: 0 Discharge Orders: Discharge Order (Routine); Ordered 10/01/20 Ordered By: Nunu Faye Admission Data Admit Date/Time: 09/30/20 17:38 Attending Provider: Rodolfo Nichole Admit Provider: Rodolfo Nichole Primary Care Provider: Mo Cordon Other Interventions: Discharge Summary Assessment (RN) Last Done: 10/01/20 14:45
== END 2020-10-01 15:46 | disposition home health service (06) ==
LOC: 3E 10:54 → ASU 10:54